=== PATIENT | female | born 1980 | race Hispanic/Latino ===

== ENCOUNTER 2019-11-26 08:02 | Outpatient (CLI) | payer OTHER ==
--- NOTE | 2019-11-26 08:21 | RAD ---
EXAM: Chest 2 views: HISTORY: Positive TB test COMPARISON: None. FINDINGS: There is a normal-sized cardiomediastinal silhouette. There is no evidence of consolidation, mass, or pleural effusion. No acute osseous abnormality. IMPRESSION: No evidence of acute cardiopulmonary disease
== END 2019-11-26 08:03 | disposition home or self-care (01) ==
LOC: BICRAD 08:02
PROVIDERS: ATTEND Family Medicine
DX: R76.11 Nonspecific reaction to tuberculin skin test without active tuberculosis (principal)
CPT/HCPCS: 71046

== ENCOUNTER 2025-01-26 07:11 | Outpatient (CLI) | payer BC | END 2025-01-26 07:12 | disposition home or self-care (01) | LOC: ULT 07:11 | PROVIDERS: ATTEND Family Medicine | DX: R10.11 Right upper quadrant pain (principal); K82.4 Cholesterolosis of gallbladder | CPT/HCPCS: 76705 ==